=== PATIENT | female | born 1945 | race Caucasian/White ===

== ENCOUNTER → 2017-11-21 | Outpatient (CLI) | payer OTHER ==
[~2017-11-21] MED LIST: ASPIR-TRIN325 MG PO; FISH OIL 1,0001 EAC5 PO; GLUCOSAMINE1000 MG PO; SIMVASTATIN40 MG PO; SYNTHROID25 MCG PO; TYLENOL325 MG PO; ZIAC 5-6.25 MG1 EACH PO
[2017-11-21 16:23] LABS: CREATININE 0.8 mg/dL (0.6-1.0)
== END ==
LOC: CAT 14:35
PROVIDERS: Internal Medicine Pulmonary Disease
DX: K44.9 Diaphragmatic hernia without obstruction or gangrene (principal); R06.02 Shortness of breath; R79.1 Abnormal coagulation profile; G47.33 Obstructive sleep apnea (adult) (pediatric)